=== PATIENT | female | born 1955 | race Caucasian/White ===

== ENCOUNTER 2017-05-22 11:01 | Inpatient (IN) | payer MEDICAID ==
[~2017-05-22] VITALS: Ht 170.2 cm; Wt 77.1 kg
[~2017-05-22 11:01] MED LIST: ADVAIR; AMIT50TA3 PO; ASPI81TA2 PO; CYM30 PO; DICY10CA59 PO; DIGO125T79 PO; DILT120C89 PO; ESOM40CA PO; MORP15TA PO; NORCO5 PO; PRED10TA PO; SOM350 PO; SYMBICORT INH; TEMA15CA51 PO; TIOT18CA3 IH; XOP.63 IH
[2017-05-22] MEDS ORDERED: CEFAZOLIN SOD 1 GM/ ISO 50 ML PREMIX IV ONE (12:15)
[2017-05-22] MEDS ORDERED: POLYMYXIN 500,000/BACIT.10,000 UNITS in NS IRR 1 L IR ONE (13:27)
[2017-05-22] MEDS ORDERED: ONDANSETRON HCL 4 MG/2 ML VIAL IVP PRN (14:45)
[2017-05-22] MEDS ORDERED: MILK OF MAGNESIA 30 ML UDC PO PRN (14:45)
[2017-05-22] MEDS ORDERED: HYDROmorphone 1 MG INJ. 1 MG/ML AMPUL IVP PRN ×3 (14:45→15:30)
[2017-05-22] MEDS ORDERED: BISACODYL 10 MG/SUPPOSITORY RC PRN (14:45)
[2017-05-22] MEDS ORDERED: HYDROcodone/ACETAMIN 10-325 MG TAB PO PRN ×2 (14:45)
[2017-05-22] MEDS ORDERED: METHOCARBAMOL 500 MG TABLET PO PRN (14:45)
[2017-05-22] MEDS ORDERED: DIPHENHYDRAMINE HCL 50 MG CAPSULE PO PRN (14:45)
[2017-05-22] MEDS ORDERED: OXYCODONE/ACETAMINOPHEN *10*mg/325 mg TABLET PO PRN (15:15)
[2017-05-22] MEDS ORDERED: LR 1,000 ML IV SCH (15:17)
[2017-05-22] MEDS ORDERED: METOCLOPRAMIDE HCL 10 MG/2 ML VIAL IVP PRN (15:30)
[2017-05-22] MEDS ORDERED: HYDROmorphone 2 MG/ML VIAL IVP PRN (15:30)
[2017-05-22] MEDS ORDERED: HYDROmorphone 2 MG/ML VIAL ONE (15:32)
[2017-05-22 16:45] VITALS: BP_SYST 139
[2017-05-22] MEDS: KCL 20 mEq in D5NS 1000 mL 1,000 ML IV SCH (18:01)
[2017-05-22] MEDS: OXYCODONE/ACETAMINOPHEN *10*mg/325 mg TABLET PO PRN (19:59)
[2017-05-22 20:00] VITALS: BP_SYST 132
[2017-05-22] MEDS: CEFAZOLIN 2 GM IVPB PREMIX 50 ML IV SCH (20:14)
[2017-05-22] MEDS: DOCUSATE SODIUM 100 MG CAPSULE PO SCH (20:25)
[2017-05-22] MEDS: HYDROmorphone 2 MG/ML VIAL IVP PRN (20:57)
[2017-05-22] MEDS: ZOLPIDEM TARTRATE 5 MG TABLET PO PRN (23:32)
[2017-05-22 23:56] VITALS: BP_SYST 135
[2017-05-23] MEDS: HYDROmorphone 2 MG/ML VIAL IVP PRN ×3 (00:13→06:55)
[2017-05-23] MEDS: METOCLOPRAMIDE HCL 10 MG/2 ML VIAL IVP PRN ×3 (00:13→17:53)
[2017-05-23 03:55] VITALS: BP_SYST 122
[2017-05-23] MEDS: KCL 20 mEq in D5NS 1000 mL 1,000 ML IV SCH ×2 (04:12→17:48)
[2017-05-23] MEDS: CEFAZOLIN 2 GM IVPB PREMIX 50 ML IV SCH ×2 (04:13→11:49)
[2017-05-23 08:00] VITALS: BP_SYST 128
[2017-05-23] MEDS: DOCUSATE SODIUM 100 MG CAPSULE PO SCH ×2 (09:00→21:33)
[2017-05-23] MEDS: HYDROmorphone 1 MG INJ. 1 MG/ML AMPUL IVP PRN ×4 (10:51→21:35)
[2017-05-23 11:29] VITALS: BP_SYST 137
[2017-05-23] MEDS: ONDANSETRON HCL 4 MG/2 ML VIAL IM PRN ×2 (14:24→21:34)
[2017-05-23 15:11] VITALS: BP_SYST 139
[2017-05-23 20:15] VITALS: BP_SYST 132
[2017-05-23] MEDS: ZOLPIDEM TARTRATE 5 MG TABLET PO PRN (23:16)
[2017-05-23 23:46] VITALS: BP_SYST 145
[2017-05-24] VITALS (7 sets, daily range): BP systolic 123–139
[2017-05-24] MEDS: HYDROmorphone 2 MG/ML VIAL IVP PRN (02:55)
[2017-05-24] MEDS: ONDANSETRON HCL 4 MG/2 ML VIAL IM PRN (05:52)
[2017-05-24] MEDS: OXYCODONE/ACETAMINOPHEN *10*mg/325 mg TABLET PO PRN ×3 (07:37→16:05)
[2017-05-24] MEDS ORDERED: ONDANSETRON 4 MG ODT TAB PO PRN (08:00)
[2017-05-24] MEDS ORDERED: IPRATROPIUM/ALBUTEROL SULFATE 3 ML AMPUL.NEB ONE (08:10)
[2017-05-24] MEDS: KCL 20 mEq in D5NS 1000 mL 1,000 ML IV SCH ×2 (09:22→10:00)
[2017-05-24] MEDS ORDERED: PREG75CA PO (09:27)
[2017-05-24] MEDS ORDERED: HYDR-4100 PO (09:27)
[2017-05-24] MEDS ORDERED: LACT10SO66 PO (09:27)
[2017-05-24] MEDS ORDERED: DOCU250C PO (09:27)
[2017-05-24] MEDS ORDERED: ARMO200T PO (09:27)
[2017-05-24] MEDS ORDERED: SENN8.8S13 PO (09:27)
[2017-05-24] MEDS ORDERED: DICL50TA9 PO (09:27)
[2017-05-24] MEDS ORDERED: OXYC-133 PO (09:27)
[2017-05-24] MEDS ORDERED: NALO25TA PO (09:27)
[2017-05-24] MEDS ORDERED: MONT10TA22 PO (09:27)
[2017-05-24] MEDS ORDERED: HYDR-3698 PO (09:27)
[2017-05-24] MEDS ORDERED: BUDE6HFA INH (09:29)
[2017-05-24] MEDS: DOCUSATE SODIUM 100 MG CAPSULE PO SCH (09:46)
[2017-05-24] MEDS: IPRATROPIUM/ALBUTEROL SULFATE 3 ML AMPUL.NEB INH PRN ×2 (12:15→16:16)
[2017-05-24] MEDS ORDERED: HYDROmorphone 2 MG TAB PO PRN (19:15)
[2017-05-24] MEDS: HYDROmorphone 1 MG INJ. 1 MG/ML AMPUL IVP PRN (19:27)
[2017-05-24] MEDS: IPRATROPIUM/ALBUTEROL SULFATE 3 ML AMPUL.NEB INH SCH ×2 (19:53→23:18)
[2017-05-24] MEDS: SENNA 8.8 MG/5 ML UDC PO SCH (22:23)
[2017-05-24] MEDS: PREGABALIN 75 MG CAPSULE (LYRICA) PO SCH (22:23)
[2017-05-24] MEDS: DICLOFENAC SODIUM 25 MG TABLET.DR PO SCH (22:26)
[2017-05-24] MEDS ORDERED: HYDROmorphone 1 MG INJ. 1 MG/ML AMPUL IVP PRN (23:45)
[2017-05-25] MEDS: HYDROmorphone 1 MG INJ. 1 MG/ML AMPUL IVP PRN ×2 (00:18→21:15)
[2017-05-25] MEDS: ZOLPIDEM TARTRATE 5 MG TABLET PO PRN ×2 (00:18→23:50)
[2017-05-25] MEDS: CARISOPRODOL 350 MG TABLET PO SCH ×5 (00:27→17:31)
[2017-05-25] MEDS: IPRATROPIUM/ALBUTEROL SULFATE 3 ML AMPUL.NEB INH SCH ×6 (03:00→22:49)
[2017-05-25 03:59] VITALS: BP_SYST 109
[2017-05-25] MEDS: IPRATROPIUM BROM 0.5 MG/2.5 ML VIAL.NEB (ATROVENT) INH SCH ×3 (07:00→15:00)
[2017-05-25] MEDS ORDERED: FLUTICASONE/VILANTEROL 1 EACH BLST.W.DEV INH SCH (09:00)
[2017-05-25] MEDS: LACTULOSE 20 GM/30 ML UDC PO SCH (10:00)
[2017-05-25] MEDS: ASPIRIN 325 MG TABLET (ECOTRIN) PO PRN ×2 (10:01→12:32)
[2017-05-25] MEDS: PREGABALIN 75 MG CAPSULE (LYRICA) PO SCH ×2 (10:01→21:29)
[2017-05-25] MEDS: DOCUSATE SODIUM 250 MG CAPSULE PO SCH (10:02)
[2017-05-25] MEDS: MONTELUKAST 10 MG TABLET PO SCH (10:02)
[2017-05-25] MEDS: DICLOFENAC SODIUM 25 MG TABLET.DR PO SCH ×2 (10:07→21:29)
[2017-05-25] MEDS: HYDROmorphone 2 MG/ML VIAL IVP PRN ×3 (10:20→17:31)
[2017-05-25] MEDS: KCL 20 mEq in D5NS 1000 mL 1,000 ML IV SCH ×2 (10:21→21:26)
[2017-05-25 12:21] VITALS: BP_SYST 109
[2017-05-25 16:19] VITALS: BP_SYST 141
[2017-05-25] MEDS: OXYCODONE/ACETAMINOPHEN *10*mg/325 mg TABLET PO PRN ×2 (18:41→23:53)
[2017-05-25] MEDS: SENNA 8.8 MG/5 ML UDC PO SCH (21:29)
[2017-05-25 21:35] VITALS: BP_SYST 138
[2017-05-26] VITALS (7 sets, daily range): BP systolic 117–147
[2017-05-26] MEDS: CARISOPRODOL 350 MG TABLET PO SCH ×4 (00:29→18:04)
[2017-05-26] MEDS: HYDROmorphone 1 MG INJ. 1 MG/ML AMPUL IVP PRN ×3 (00:49→14:05)
[2017-05-26] MEDS: IPRATROPIUM/ALBUTEROL SULFATE 3 ML AMPUL.NEB INH SCH ×4 (03:00→15:00)
[2017-05-26] MEDS: LACTULOSE 20 GM/30 ML UDC PO SCH (08:34)
[2017-05-26] MEDS: DICLOFENAC SODIUM 25 MG TABLET.DR PO SCH (08:34)
[2017-05-26] MEDS: MONTELUKAST 10 MG TABLET PO SCH (08:35)
[2017-05-26] MEDS: DOCUSATE SODIUM 250 MG CAPSULE PO SCH (08:36)
[2017-05-26] MEDS: PREGABALIN 75 MG CAPSULE (LYRICA) PO SCH (08:45)
[2017-05-26] MEDS: KCL 20 mEq in D5NS 1000 mL 1,000 ML IV SCH (08:48)
[2017-05-26 10:00] LABS: BASOPHILS # (AUTO) 0.1 K/uL (0.0-0.2); EOSINOPHILS # (AUTO) 0.4 K/uL (0.0-0.4); EOSINOPHILS % (AUTO) 6.7 % (0.0-4.0); HEMATOCRIT 34.5 % (36-48); HEMOGLOBIN 11.6 g/dL (12.0-16.0); LYMPHOCYTES # (AUTO) 1.4 K/uL (1.0-5.5); LYMPHOCYTES % (AUTO) 26.6 % (20.5-51.5); MEAN CORPUSCULAR HEMOGLOBIN 35 pg (27-31); MEAN CORPUSCULAR HGB CONC 34 % (32-36); MEAN CORPUSCULAR VOLUME 105 fL (79.0-98.0); MONOCYTES # (AUTO) 0.5 K/uL (0.0-1.0); MONOCYTES % (AUTO) 9.5 % (1.7-9.3); NEUTROPHILS % (AUTO) 56.2 % (40.0-70.0); PLATELET COUNT (AUTO) 163 K/uL (130-430); RED BLOOD CELL COUNT(AUTO) 3.29 MIL/uL (4.2-6.2); RED CELL DISTRIBUTION WIDTH 12.7 % (9.0-15.0); WHITE BLOOD COUNT (AUTO) 5.4 K/uL (4.8-10.8)
[2017-05-26 10:13] LABS: CALCIUM 9.1 mg/dL (8.4-11.0); CREATININE 0.43 mg/dL (0.55-1.30); POTASSIUM 4.4 mmol/L (3.5-5.1)
[2017-05-26] MEDS: HYDROmorphone 2 MG/ML VIAL IVP PRN ×2 (10:56→16:33)
[2017-05-26] MEDS: ONDANSETRON HCL 4 MG/2 ML VIAL IM PRN (11:37)
[2017-05-26] MEDS: ASPIRIN 325 MG TABLET (ECOTRIN) PO PRN (12:30)
[2017-05-26] MEDS ORDERED: HYDR4TAB26 PO (17:18)
[2017-05-26] MEDS ORDERED: HYDR-4100 PO ×2 (17:20→17:32)
[2017-05-26] MEDS: OXYCODONE/ACETAMINOPHEN *10*mg/325 mg TABLET PO PRN (18:07)
[2017-05-26] MEDS ORDERED: OXYC-133 PO (18:32)
[2017-05-26] MEDS ORDERED: PROPOFOL 200MG/ 20ML VIAL (DIPRIVAN) IV ONE (20:49)
[2017-05-26] MEDS ORDERED: LR 1,000 ML IV.SOLN IV ONE (20:49)
[2017-05-26] MEDS ORDERED: BUPIVACAINE /EPINEPHRINE/PF 0.25% 30 ML VIAL INJ ONE (20:49)
[2017-05-26] MEDS ORDERED: SEVOFLURANE 15 MIN GAS INH ONE (20:49)
[2017-05-26] MEDS ORDERED: CEFAZOLIN 1 GM IVPB PREMIX 50 ML IV ONE (20:49)
[2017-05-26] MEDS ORDERED: ONDANSETRON HCL 4 MG/2 ML VIAL IVP ONE (20:49)
[2017-05-26] MEDS ORDERED: THROMBIN (BOVINE) 5000 UNITS/ VIAL TP ONE (20:49)
[2017-05-26] MEDS ORDERED: SUCCINYLCHOLINE CHLORIDE 20 MG/ML(QUELICIN) IVP ONE (20:49)
[2017-05-26] MEDS ORDERED: fentaNYL CITRATE 250 MCG/5 ML AMP IV ONE (20:49)
[2017-05-26] MEDS ORDERED: MIDAZOLAM HCL 5 MG/ML VIAL (VERSED) IV ONE (20:49)
== END 2017-05-26 20:50 | DRG 321 ==
LOC: SDS 11:01 → SMU 16:16 → SDS 05-23 14:13 → SMU 05-23 14:13
PROVIDERS: ADMIT Neurological Surgery; ATTEND Neurological Surgery
PROC: 0RB30ZZ Excision of Cervical Vertebral Disc, Open Approach (ICD-10-PCS; 2017-05-22)
PROC: 4A11X4G Monitoring of Peripheral Nervous Electrical Activity, Intraoperative, External Approach (ICD-10-PCS; 2017-05-22)
PROC: 0RG10A0 Fusion of Cervical Vertebral Joint with Interbody Fusion Device, Anterior Approach, Anterior Column, Open Approach (ICD-10-PCS; principal; 2017-05-22 13:00)
DX: M50.121 Cervical disc disorder at C4-C5 level with radiculopathy (principal); M41.9 Scoliosis, unspecified; S13.150A Subluxation of C4/C5 cervical vertebrae, initial encounter; G47.419 Narcolepsy without cataplexy; M81.0 Age-related osteoporosis without current pathological fracture; F41.9 Anxiety disorder, unspecified; Z88.5 Allergy status to narcotic agent
CPT/HCPCS: 36415; 71010; 76000; 80048; 85025; 87081; 94640; 94760; 97110-GP; 97116-GP; 97530-GP; J0330; J0690; J1170; J2250; J2405; J2704; J2765; J3010; J3490; J7120

== ENCOUNTER 2019-08-04 14:51 | Emergency (ER) | payer OTHER, MEDICAID ==
[~2019-08-04] VITALS: Ht 149.9 cm; Wt 73.9 kg
[2019-08-04 14:51] VITALS: BP_SYST 149
[~2019-08-04 14:51] MED LIST changes: -ADVAIR; -AMIT50TA3 PO; +ARMO200T PO; -ASPI81TA2 PO; +BUDE6HFA INH; -CYM30 PO; +DICL50TA9 PO; -DICY10CA59 PO; -DIGO125T79 PO; -DILT120C89 PO; +DOCU250C14 PO; -ESOM40CA PO; +HYDR-3698 PO; +HYDR-4100 PO; +HYDR4TAB26 PO; +LACT10SO66 PO; +MONT10TA22 PO; -MORP15TA PO; +NALO25TA PO; -NORCO5 PO; +OXYC-133 PO; -PRED10TA PO; +PREG75CA PO; +SENN8.8S13 PO; -SYMBICORT INH; -TEMA15CA51 PO; -XOP.63 IH
--- NOTE | 2019-08-04 16:50 | NUR ---
Patient to ER bed 02 to gown for evaluation. Side rails up.
--- NOTE | 2019-08-04 17:05 | NUR ---
Pt brought by family member, A&O x4 , pt presents to ER with abdominal pain and constipation, skin pink and warm, cap refill <3, VS WNL, respirations even and unlabored.
--- NOTE | 2019-08-04 17:22 | NUR ---
Dr Aly at bedside examining patient
[2019-08-04] MEDS ORDERED: NACL 0.9% 1,000 ML IV ONE (17:30)
[2019-08-04 17:31] LABS: BASOPHILS # (AUTO) 0.1 K/uL (0.0-0.2); BASOPHILS % (AUTO) 1.5 % (0.0-2.0); EOSINOPHILS # (AUTO) 0.3 K/uL (0.0-0.4); EOSINOPHILS % (AUTO) 2.9 % (0.0-4.0); HEMATOCRIT 48.7 % (36-48); HEMOGLOBIN 16.4 g/dL (12.0-16.0); LYMPHOCYTES # (AUTO) 1.1 K/uL (1.0-5.5); LYMPHOCYTES % (AUTO) 11.4 % (20.5-51.5); MEAN CORPUSCULAR HEMOGLOBIN 35 pg (27-31); MEAN CORPUSCULAR HGB CONC 34 % (32-36); MEAN CORPUSCULAR VOLUME 103 fL (79.0-98.0); MONOCYTES # (AUTO) 0.6 K/uL (0.0-1.0); MONOCYTES % (AUTO) 5.7 % (1.7-9.3); NEUTROPHILS # (AUTO) 7.6 K/uL (1.8-7.7); NEUTROPHILS % (AUTO) 78.5 % (40.0-70.0); PLATELET COUNT (AUTO) 223 K/uL (130-430); RED BLOOD CELL COUNT(AUTO) 4.73 MIL/uL (4.2-6.2); RED CELL DISTRIBUTION WIDTH 13.6 % (9.0-15.0); WHITE BLOOD COUNT (AUTO) 9.7 K/uL (4.8-10.8)
[2019-08-04 17:37] LABS: PROTHROMBIN TIME 10.4 SECS (9.5-12.5)
[2019-08-04 17:39] LABS: ALBUMIN 4.3 g/dL (3.4-4.8); CALCIUM 9.2 mg/dL (8.4-11.0); CREATININE 0.5 mg/dL (0.55-1.30); POTASSIUM 3.7 mmol/L (3.5-5.1)
[2019-08-04] MEDS ORDERED: ONDANSETRON HCL 4 MG/2 ML VIAL IVP ONE (18:00)
[2019-08-04] MEDS ORDERED: ACETAMINOPHEN 325 MG TABLET PO ONE (18:00)
[2019-08-04] MEDS ORDERED: MORPHINE 4 MG/ML INJ. SYRINGE IVP ONE (18:00)
--- NOTE | 2019-08-04 18:05 | NUR ---
chest port access using sterile technique, well tolerated
--- NOTE | 2019-08-04 18:08 | NUR ---
Pt states she is not allergic to Morphine, notified
--- NOTE | 2019-08-04 19:25 | NUR ---
Report given to Micheal RUTH
--- NOTE | 2019-08-04 19:29 | NUR ---
Report recieved from Rn at bedside via SBAR approach. Pt in bed, AAO. Stable. Will continue to monitor.
[2019-08-04] MEDS ORDERED: GLYCERIN 1 SUPP.RECT (ADULT) RC ONE (19:30)
[2019-08-04] MEDS ORDERED: MAGNESIUM CITRATE 300 ML ORAL SOLUTION PO ONE (21:15)
[2019-08-04] MEDS ORDERED: HEPARIN IV FLUSH 1 UNIT/ML PF 6ML SYRINGE IV ONE (21:15)
[2019-08-04] MEDS ORDERED: HEPARIN IV FLUSH 300 UNITS/3ML SYR ONE (21:36)
[2019-08-04 21:50] VITALS: BP_SYST 125
== END 2019-08-04 21:50 | disposition home or self-care (01) ==
LOC: SED 14:51
DX: K59.00 Constipation, unspecified (principal); J44.9 Chronic obstructive pulmonary disease, unspecified; I49.9 Cardiac arrhythmia, unspecified; M43.9 Deforming dorsopathy, unspecified; Z90.710 Acquired absence of both cervix and uterus; Z79.899 Other long term (current) drug therapy
CPT/HCPCS: 36415; 74176; 80053; 82150; 83605; 83690; 85025; 85610; 85730; 96374; 96375; 99284; J1642; J2270; J2405; J7030